=== PATIENT | female | born 1955 | race Caucasian/White ===

== ENCOUNTER 2021-02-11 16:21 | Inpatient (IN) ==
[2021-02-11] MEDS ORDERED: Acetaminophen 325 MG TABLET PO PRN (20:35)
[2021-02-11] MEDS ORDERED: Ondansetron 4 MG/2 ML VIAL IVP PRN (20:35)
[2021-02-11] MEDS ORDERED: Naloxone 0.4 MG/ML INJ IVP PRN (20:35)
[2021-02-11] MEDS ORDERED: 0.9 % Sodium Chloride 1,000 ML IVC SCH ×2 (20:45→22:30)
[2021-02-11 21:19] LABS: Basophils % 0.1 %; Hematocrit 46.2 % (35.3-44.9); Hemoglobin 15.8 g/dL (11.5-15.4); Immature Granulocytes % 0.5 % (0-4); Lymphocytes # 0.7 K/mcL (0.6-4.6); Lymphocytes % 3.9 %; Mean Corpuscular HGB Conc 34.2 g/dL (31.6-35.5); Mean Corpuscular Hemoglobin 30.2 pg (28.0-33.3); Mean Corpuscular Volume 88.3 fL (83.0-100.0); Mean Platelet Volume 8.4 fL (9.4-12.4); Monocytes # 0.8 K/mcL (0.0-1.3); Monocytes % 4.3 %; Neutrophils # 15.7 K/mcL (1.6-8.9); Platelet Count 374 K/mcL (140-400); Red Blood Count 5.23 M/mcL (3.82-4.97); Red Cell Distribution Width 12.9 % (11.5-14.5); Segmented Neutrophils % 91.2 %; White Blood Count 17.3 K/mcL (4.3-11.1)
[2021-02-11 21:29] LABS: INR 1.2; Prothrombin Time 13.3 Seconds (9.4-12.1)
[2021-02-11 21:38] LABS: Bilirubin,Urine Negative (Negative); Blood,Urine Large (Negative); Clarity,Urine Clear (Clear); Color,Urine Light-Yellow (Yellow); Glucose,Urine (UA) Normal (Normal); Ketones,Urine 20 mg/dL (Negative); Leukocyte Esterase,Urine Negative (Negative); Nitrite,Urine Negative (Negative); Protein,Urine 70 mg/dL (Neg-Trace); RBC,Urine TNTC per hpf (0-3); Specific Gravity,Urine > 1.030 (1.010-1.025); Squamous Epithelial Cell,Urine Few per hpf (None-Few); Urobilinogen,Urine Normal (Normal); WBC,Urine 0-3 per hpf (0-3)
[2021-02-11] MEDS ORDERED: Acetaminophen IV 500 MG/50 ML BAG IVPB ONE (21:39)
[2021-02-11 21:43] LABS: Amphetamine Screen,Urine Negative ng/mL (Cutoff=1000); Barbiturate Screen,Urine Negative ng/mL (Cutoff=200); Benzodiazepines Screen,Urine Negative ng/mL (Cutoff=200); Cannabinoid Screen,Urine Negative ng/mL (Cutoff = 50); Cocaine Screen,Urine Negative ng/mL (Cutoff= 300); Opiate Screen,Urine Negative ng/mL (Cutoff=300); Phencyclidine Screen,Urine Negative ng/mL (Cutoff=25)
[2021-02-11 21:55] LABS: Alanine Aminotransferase 16 Units/L (7-52); Albumin 3.9 g/dL (3.5-5.7); Albumin/Globulin Ratio 1.5 (1.1-2.2); Alkaline Phosphatase 86 Units/L (34-104); Aspartate Amino Transferase 58 Units/L (13-39); BUN/Creatinine Ratio 15 (6-26); Bilirubin,Total 0.8 mg/dL (0.3-1.0); Blood Urea Nitrogen 13 mg/dL (8-23); Calcium 8.9 mg/dL (8.6-10.3); Carbon Dioxide 19 mEq/L (23-29); Chloride 106 mEq/L (98-107); Globulin 2.6 g/dL (2.4-3.5); Glucose 137 mg/dL (70-105); Magnesium 2.1 mg/dL (1.6-2.6); Osmolality,Calculated 288 (280-300); Phosphorous 2.6 mg/dL (2.7-4.5); Potassium 4.1 mEq/L (3.5-5.1); Sodium 138 mEq/L (136-145); Total Protein 6.5 g/dL (6.4-8.9); Troponin I 4.72 ng/mL (< 0.04); eGFR For African Americans > 60 (> 60); eGFR For Non-African Americans > 60 (> 60)
[2021-02-11 21:58] LABS: Creatine Kinase 2336 Units/L (30-223)
[2021-02-11] MEDS ORDERED: *HR* Heparin 5,000 UNIT/ML VIAL IVP PRN ×2 (21:58)
[2021-02-11] MEDS ORDERED: *HR* Heparin 5,000 UNIT/ML VIAL IVP ONE (21:58)
[2021-02-11] MEDS ORDERED: Perflutren Lipid Microsphere 1.3 ML in 0.9 % Sodium Chloride 8.7 ML IVP PRN (22:00)
[2021-02-11] MEDS ORDERED: Heparin 25,000UNIT/250ML 1/2NS 25,000 UNIT/250 ML IV.SOLN IVC SCH (22:00)
[2021-02-11 22:15] LABS: Heparin anti-factor XA UFH < 0.04 IU/mL (0.30-0.70)
[2021-02-11 23:07] LABS: ABG Base Excess -4 mEq/L (-2 to 3); ABG HCO3 20 mEq/L (21-27); ABG Oxygen Saturation 90 % (95-98); ABG PCO2 33 mmHg (35-45); ABG PH 7.39 pH Units (7.32-7.45); ABG PO2 59 mmHg (85-104); ABG TCO2 21 mEq/L (20-26)
[2021-02-11] MEDS: Piperacillin/Tazobactam 3.375 GM in 0.9 % Sodium Chloride Mini Bag 100 ML IVPB SCH (23:47)
[2021-02-12] MEDS ORDERED: Vancomycin 1,250 MG/262.5 ML IV.SOLN IVPB ONE (00:01)
[2021-02-12] MEDS ORDERED: Haloperidol Lactate 5 MG/ML VIAL IVP ONE ×2 (00:05→01:59)
[2021-02-12] MEDS ORDERED: Furosemide 20 MG/2 ML VIAL IVP ONE (02:14)
[2021-02-12] MEDS ORDERED: Dexmedetomidine HCl 400 MCG/100 ML MLS IVC SCH (03:00)
[2021-02-12] MEDS: 0.9 % Sodium Chloride 1,000 ML IVC SCH ×2 (03:23→17:47)
[2021-02-12 03:30] LABS: Basophils % 0.2 %; Hematocrit 47.5 % (35.3-44.9); Immature Granulocytes % 0.7 % (0-4); Lymphocytes # 0.6 K/mcL (0.6-4.6); Lymphocytes % 3.1 %; Mean Corpuscular HGB Conc 33.7 g/dL (31.6-35.5); Mean Corpuscular Hemoglobin 30.2 pg (28.0-33.3); Mean Corpuscular Volume 89.8 fL (83.0-100.0); Monocytes % 5.6 %; Neutrophils # 16.5 K/mcL (1.6-8.9); Platelet Count 348 K/mcL (140-400); Red Blood Count 5.29 M/mcL (3.82-4.97); Red Cell Distribution Width 13.1 % (11.5-14.5); Segmented Neutrophils % 90.4 %; White Blood Count 18.2 K/mcL (4.3-11.1)
[2021-02-12 03:55] LABS: BUN/Creatinine Ratio 18 (6-26); Blood Urea Nitrogen 17 mg/dL (8-23); Calcium 8.3 mg/dL (8.6-10.3); Carbon Dioxide 17 mEq/L (23-29); Chloride 110 mEq/L (98-107); Chol/HDL Ratio 2.9 (0-4.9); Cholesterol 212 mg/dL (< 200); Glucose 150 mg/dL (70-105); HDL Cholesterol 72 mg/dL (40-59); LDL Cholesterol,Calculated 124 mg/dL (< 100); Osmolality,Calculated 296 (280-300); Potassium 3.9 mEq/L (3.5-5.1); Sodium 141 mEq/L (136-145); Triglycerides 79 mg/dL (< 150); eGFR For African Americans > 60 (> 60); eGFR For Non-African Americans 58 (> 60)
[2021-02-12 04:08] LABS: Thyroid Stimulating Hormone 0.841 mcIU/mL (0.340-5.600)
[2021-02-12] MEDS ORDERED: *HR* HYDROmorphone 2 MG/ML SYRINGE IVP ONE (05:04)
[2021-02-12] MEDS ORDERED: Furosemide 40 MG/4 ML VIAL IVP SCH (10:30)
[2021-02-12] MEDS: Piperacillin/Tazobactam 3.375 GM in 0.9 % Sodium Chloride Mini Bag 100 ML IVPB SCH ×3 (10:46→20:11)
[2021-02-12] MEDS ORDERED: Morphine Sulfate 2 MG/ML SYRINGE IVP PRN (12:45)
[2021-02-12 12:46] LABS: Troponin I 6.59 ng/mL (< 0.04)
[2021-02-12] MEDS ORDERED: *HR* LORazepam 2 MG/ML VIAL IVP PRN (13:58)
[2021-02-12] MEDS: Morphine Sulfate 2 MG/ML SYRINGE IVP PRN ×4 (15:13→22:30)
[2021-02-12] MEDS: *HR* LORazepam 2 MG/ML VIAL IVP PRN ×3 (17:38→22:29)
[2021-02-13] MEDS: Morphine Sulfate 2 MG/ML SYRINGE IVP PRN ×12 (00:31→23:46)
[2021-02-13] MEDS: *HR* LORazepam 2 MG/ML VIAL IVP PRN ×5 (00:31→11:01)
[2021-02-13] MEDS: 0.9 % Sodium Chloride 1,000 ML IVC SCH ×2 (02:42→12:48)
[2021-02-13 02:56] LABS: Hematocrit 36.9 % (35.3-44.9); Mean Corpuscular HGB Conc 33.3 g/dL (31.6-35.5); Mean Corpuscular Hemoglobin 30.1 pg (28.0-33.3); Mean Corpuscular Volume 90.4 fL (83.0-100.0); Platelet Count 265 K/mcL (140-400); Red Blood Count 4.08 M/mcL (3.82-4.97); Red Cell Distribution Width 13.4 % (11.5-14.5); White Blood Count 15.2 K/mcL (4.3-11.1)
[2021-02-13 02:57] LABS: Hemoglobin 12.3 g/dL (11.5-15.4)
[2021-02-13 03:19] LABS: BUN/Creatinine Ratio 25 (6-26); Blood Urea Nitrogen 25 mg/dL (8-23); Calcium 7.4 mg/dL (8.6-10.3); Carbon Dioxide 21 mEq/L (23-29); Chloride 115 mEq/L (98-107); Glucose 103 mg/dL (70-105); Osmolality,Calculated 307 (280-300); Potassium 3.9 mEq/L (3.5-5.1); Sodium 146 mEq/L (136-145); eGFR For African Americans > 60 (> 60); eGFR For Non-African Americans 54 (> 60)
[2021-02-13] MEDS: Piperacillin/Tazobactam 3.375 GM in 0.9 % Sodium Chloride Mini Bag 100 ML IVPB SCH ×2 (04:24→12:48)
[2021-02-13] MEDS ORDERED: Atropine 1% Opth Drops 100 DROP/5 ML BOTTLE SL PRN (11:32)
[2021-02-13] MEDS: Haloperidol Lactate 5 MG/ML VIAL IVP PRN ×6 (12:44→23:46)
[2021-02-14] MEDS: *HR* LORazepam 2 MG/ML VIAL IVP PRN ×8 (00:19→22:49)
[2021-02-14] MEDS: Morphine Sulfate 2 MG/ML SYRINGE IVP PRN ×10 (01:38→22:49)
[2021-02-14] MEDS: Haloperidol Lactate 5 MG/ML VIAL IVP PRN ×5 (04:56→18:54)
[2021-02-14] MEDS ORDERED: Morphine Sulfate Oral CONC 10 MG/0.5 ML ORAL.SYG SL PRN (08:44)
[2021-02-15] MEDS: Morphine Sulfate 2 MG/ML SYRINGE IVP PRN ×6 (00:13→15:53)
[2021-02-15] MEDS: *HR* LORazepam 2 MG/ML VIAL IVP PRN ×4 (00:13→13:19)
[2021-02-15] MEDS: Haloperidol Lactate 5 MG/ML VIAL IVP PRN ×4 (04:06→15:53)
== END 2021-02-15 15:57 | disposition hospice, inpatient (51) | DRG 871 ==
LOC: 2NENU → SUATTDRO 19:27 → 2NNU 02-12 12:46 → 2ANU 02-12 17:31
PROVIDERS: ADMIT Internal Medicine; ATTEND Family Medicine

== ENCOUNTER 2021-02-15 11:27 | Inpatient (IN) ==
[2021-02-15] MEDS ORDERED: Haloperidol Lactate 5 MG/ML VIAL IVP PRN (12:44)
[2021-02-15] MEDS ORDERED: Bisacodyl 10 MG RECTAL SUPPOSITORY RC PRN (12:44)
[2021-02-15] MEDS ORDERED: Atropine 1% Opth Drops 100 DROP/5 ML BOTTLE SL PRN (12:51)
[2021-02-15] MEDS: Morphine Sulfate 2 MG/ML SYRINGE IVP PRN ×2 (20:28→23:52)
[2021-02-15] MEDS: *HR* LORazepam 2 MG/ML VIAL IVP PRN ×2 (20:32→23:52)
[2021-02-16] MEDS: *HR* LORazepam 2 MG/ML VIAL IVP PRN ×5 (06:05→23:12)
[2021-02-16] MEDS: Morphine Sulfate 2 MG/ML SYRINGE IVP PRN ×5 (06:06→18:56)
[2021-02-16] MEDS ORDERED: Acetaminophen 650 MG RECTAL SUPP RC PRN (09:10)
[2021-02-16] MEDS: Morphine Sulfate Oral CONC 10 MG/0.5 ML ORAL.SYG SL SCH ×3 (16:13→23:12)
[2021-02-17] MEDS: *HR* LORazepam 2 MG/ML VIAL IVP PRN ×6 (03:32→22:20)
[2021-02-17] MEDS: Morphine Sulfate Oral CONC 10 MG/0.5 ML ORAL.SYG SL SCH ×6 (03:32→23:17)
[2021-02-17] MEDS: Morphine Sulfate 2 MG/ML SYRINGE IVP PRN ×4 (07:36→22:21)
[2021-02-18] MEDS: Morphine Sulfate Oral CONC 10 MG/0.5 ML ORAL.SYG SL SCH ×6 (03:45→23:52)
[2021-02-18] MEDS: *HR* LORazepam 2 MG/ML VIAL IVP PRN ×5 (08:33→22:32)
[2021-02-18] MEDS: Morphine Sulfate 2 MG/ML SYRINGE IVP PRN ×2 (14:47→22:31)
[2021-02-19] MEDS: *HR* LORazepam 2 MG/ML VIAL IVP PRN ×2 (02:14→05:39)
[2021-02-19] MEDS: Morphine Sulfate 2 MG/ML SYRINGE IVP PRN ×2 (02:15→05:39)
[2021-02-19] MEDS: Morphine Sulfate Oral CONC 10 MG/0.5 ML ORAL.SYG SL SCH ×2 (03:07→08:30)
== END 2021-02-19 11:05 | disposition expired | DRG 951 ==
LOC: 2ANU 16:01
PROVIDERS: ADMIT Internal Medicine Hospice and Palliative Medicine; ATTEND Internal Medicine Hospice and Palliative Medicine